=== PATIENT | female | born 1980 | race Two or more races ===

== ENCOUNTER 2017-01-08 01:52 | Emergency (ER) | payer BC, MEDICAID ==
[~2017-01-08] VITALS: Ht 162.6 cm; Wt 56.0 kg
[~2017-01-08 01:52] MED LIST: CEPH500C PO; FURO20TA3 PO
[2017-01-08 01:55] VITALS: Ht 162.6 cm; Wt 56.0 kg
[2017-01-08] MEDS ORDERED: CEPH-443 PO (02:49)
[2017-01-08] MEDS ORDERED: SULF1TAB31 PO (02:49)
--- NOTE | 2017-01-08 02:55 | ERA ---
ER Documentation Chief Complaint Date/Time DATE: 01/08/17 TIME: 02:51 Chief Complaint abscess pubic area HPI This is a 36-year-old female presented with a 3 day history of abscess. Patient has had abscesses in the past. Patient has done both antibiotics and incision and drainage with temporary relief of abscess. Last abscess was at least 1 year ago. Patient's abscess is recurrent in the same area. Patient is being followed by [employer]. Denies fever, rapid progression of symptoms, recent antibiotic use, symptomatic close contacts, diabetes, pruritus, pain, history of insect bite. Patients vaccination status is up to date.. Patient otherwise describes no other social manifestations. Vaccination status up-to- date and there is no recent travel. Nursing notes have been reviewed and are consistent with history given. ROS All systems reviewed and are negative except as per history of present illness. Medications Home Meds Active Scripts Sulfamethoxazole/Trimethoprim* (Bactrim Ds* Tablet) 1 Each Tablet, 1 TAB PO BID , #14 TAB Prov:JELENA DUARTE PA-C 01/08/17 Cephalexin* (Keflex*) 500 Mg Capsule, 500 MG PO QID for 5 Days, CAP Prov:JELENA DUARTE PA-C 01/08/17 Furosemide* (Furosemide*) 20 Mg Tablet, 20 MG PO DAILY, #7 TAB Prov:GEREMIAS CHOUDHURY MD 04/06/15 Cephalexin* (Cephalexin*) 500 Mg Capsule, 500 MG PO Q8, #21 CAP Prov:GEREMIAS CHOUDHURY MD 04/06/15 Allergies Allergies: Uncoded Allergies: no known allergies (Allergy, Unknown, 03/31/15) PMhx/Soc Medical and Surgical Hx: pt denies Medical Hx, pt denies Surgical Hx Hx Alcohol Use: No Hx Substance Use: No Hx Tobacco Use: No Smoking Status: Never smoker Physical Exam Vitals Vital Signs Date Time Temp Pulse Resp B/P Pulse Ox O2 Delivery O2 Flow Rate FiO2 01/08/17 01:55 97.8 89 20 123/73 100 Physical Exam Const: Well-appearing healthy no acute distress Head: Atraumatic Eyes: Normal Conjunctiva ENT: Normal External Ears, Nose and Mouth. Neck: Full range of motion..~ No meningismus. Resp: Clear to auscultation bilaterally Cardio: Regular rate and rhythm, no murmurs Abd: Soft, non tender, non distended. Normal bowel sounds Skin: For 2 7 cm nonfluctuant erythematous warm to touch abscess on the lateral aspect of the left labia majora. Back: No midline or flank tenderness Ext: No cyanosis, or edema Neur: Awake and alert Psych: Normal Mood and Affect Procedures/MDM 36-year-old female with signs and symptoms most consistent with cellulitis and abscess. Abscess was nonfluctuant and thus antibiotics at this time without incision and drainage will be initiated. Patient has been relieved with Bactrim and Keflex before this is antibiotics will be attempted again. I will suspicion for lymphangitis, bacteremia, or other serious bacterial infection/ systemic involvement. Patient will be discharged with discharge instructions return precautions. Medical Director during examination IRIS Pacheco. Departure Diagnosis: Primary Impression: Abscess Condition: Stable Patient Instructions: Abscess, Antiobiotic Treatment Only Additional Instructions: Follow up with your PCP within the next 1-3 days for a more thorough evaluation and a possible referral to a specialist. Return the the emergency department immediately if symptoms worsen or change. If you have any questions regarding medications, ask your pharmacist or us before you leave. If any adverse reactions occur while taking your medications, discontinue the treatment and return to the emergency department immediately. Take your medications as directed, and complete the entire course of treatment. JELENA DUARTE PA-C Jan 08, 2017 02:55
== END 2017-01-08 03:21 | disposition home or self-care (01) ==
LOC: FTE 01:52
DX: N76.4 Abscess of vulva (principal)
CPT/HCPCS: 99284